=== PATIENT | female | born 1955 | race Caucasian/White ===

== ENCOUNTER 2018-08-09 07:18 | Inpatient (IN) | payer OTHER ==
[2018-08-09] MEDS ORDERED: ceFAZolin 2 GM/DEXTROSE 100 ML IV ONE (07:28)
[2018-08-09] MEDS ORDERED: ACETAMINOPHEN 500 MG TAB PO ONE (07:28)
[2018-08-09] MEDS ORDERED: GABAPENTIN 300 MG CAP PO ONE (07:28)
[2018-08-09] MEDS ORDERED: LR 1,000 ML IV ONE (08:39)
[2018-08-09] MEDS ORDERED: CHLORHEXIDINE GLUC HIBICLENS 118 ML BTL TP ONE (08:59)
[2018-08-09] MEDS ORDERED: SURGIFLO MATRIX KIT WITH THROMBIN 8 ML TP ONE (08:59)
[2018-08-09] MEDS ORDERED: THROMBIN (BOVINE) 20,000 UNIT VIAL TP ONE (08:59)
[2018-08-09] MEDS ORDERED: BACITRACIN 50,000 UNITS/10 ML SYR IRR ONE (09:00)
[2018-08-09] MEDS ORDERED: MIDAZOLAM 2 MG/2 ML VIAL IVP ONE (09:18)
--- NOTE | 2018-08-09 09:21 | PDANEPAE ---
ANE Past Medical History - Cardiovascular History Hx Hypertension: No Hx Arrhythmias: No Hx Chest Pain: No Hx Coronary Artery / Peripheral Vascular Disease: No Hx CHF / Valvular Disease: No Hx Palpitations: No - Pulmonary History Hx COPD: No Hx Asthma/Reactive Airway Disease: No Hx Recent Upper Respiratory Infection: No Hx Oxygen in Use at Home: No Hx Sleep Apnea: No Sleep Apnea Screening Result - Last Documented: Negative - Neurologic History Hx Cerebrovascular Accident: No Hx Seizures: No Hx Dementia: No - Endocrine History Hx Diabetes: No Obesity: mild - Renal History Hx Renal Disorders: No - Liver History Hx Hepatic Disorders: No Hepatic History Comment: KIDNEY STONE IN PAST. UTI RECENTLY - TXD W/ABX - Neurological & Psychiatric Hx Hx Neurological and Psychiatric Disorders: No - Cancer History Hx Cancer: No - Congenital Disorder History Hx Congenital Disorders: No - GI History GERD: mild Hx Gastrointestinal Disorders: Yes Gastrointestinal History Comment: C DIFF RECENTLY. HIATAL HERNIA - Other Health History Other Health History: EPI-RETINAL MEMBRANES. NARROW ANGLE GLAUCOMA - Chronic Pain History Chronic Pain: Yes (WEAKNESS ARMS & LOW BACK PAIN) - Surgical History Prior Surgeries: TONSILLECTOMY. L KNEE ACL. BREAST REDUCTION. EYELID LIFT ANE Review of Systems Review of Systems: - Exercise capacity METS (RN): 4 METS ANE Patient History - Allergies Allergies/Adverse Reactions: droperidol [From Inapsine] Allergy (Severe, Verified 08/09/18 07:59) Other-Enter Comments - Home Medications Home medications: home medication list seen and reviewed Home Medications: Citalopram 06/10/18 [Last Taken 08/09/18 05:00] traZODone 06/10/18 [Last Taken 08/08/18] Herbals/Supplements -Info Only 08/08/18 [Last Taken 08/04/18] Tramadol HCl 08/08/18 [Last Taken 08/09/18 05:00] Tylenol 08/08/18 [Last Taken 08/09/18 04:00] Zolpidem Tartrate 08/08/18 [Last Taken 08/08/18] - NPO status NPO Status: no food or drink >8 hours NPO Since - Liquids (Date): 08/09/18 NPO Since - Liquids (Time): 05:00 NPO Since - Solids (Date): 08/08/18 NPO Since - Solids (Time): 18:00 - Anes Hx Anes Hx: no prior problems - Smoking Hx Smoking Status: Never smoked - Family Anes Hx Family Hx Anesthesia Complications: NEG ANE Labs/Vital Signs - Vital Signs Blood Pressure: 156/87 Heart Rate: 58 Respiratory Rate: 16 O2 Sat (%): 92 Height: 152.4 cm Weight: 76.204 kg ANE Physical Exam - Airway Neck exam: FROM Mallampati Score: Class 2 Mouth exam: normal dental/mouth exam - Pulmonary Pulmonary: no respiratory distress, no rales or rhonchi, clear to auscultation - Cardiovascular Cardiovascular: regular rate and rhythym, no murmur, rub, or gallop - ASA Status ASA Status: II ANE Anesthesia Plan Anesthesia Plan: general endotracheal anesthesia
[2018-08-09] MEDS ORDERED: PROPOFOL 200 MG/20 ML VIAL ONE (09:34)
[2018-08-09] MEDS ORDERED: DEXAMETHASONE 4 MG/ML VIAL ONE ×2 (09:37)
[2018-08-09] MEDS ORDERED: ONDANSETRON 4 MG/2 ML VIAL ONE (09:37)
[2018-08-09] MEDS ORDERED: SUCCINYLCHOLINE CHLORIDE 200 MG/10 ML SYR IVP ONE (09:37)
--- NOTE | 2018-08-09 09:51 | PDHPUP ---
History & Physical Update H&P update statement: This history and physical update is based on an assessment of the patient which was completed after admission or registration (within 24 hours), but prior to the surgery/procedure. H&P update: H&P reviewed & patient examined, no change in patient's condition since H&P completed (Consents signed and site marked. All questions answered.)
[2018-08-09] MEDS ORDERED: DEXMEDETOMIDINE HCL 200 MCG in NS 50 ML IV SCH (10:00)
[2018-08-09] MEDS ORDERED: PHENYLEPHRINE HCL 100 MCG/ML SYR ONE (10:33)
[2018-08-09] MEDS ORDERED: LIDOCAINE 2% 2 ML INJ ONE ×2 (10:38)
[2018-08-09] MEDS ORDERED: GLYCOPYRROLATE 0.2 MG/1 ML VIAL ONE ×2 (10:43→12:12)
[2018-08-09] MEDS ORDERED: fentaNYL 100 MCG/2 ML INJ IVP PRN (12:35)
[2018-08-09] MEDS ORDERED: oxyCODONE IR 5 MG TAB PO PRN ×2 (12:35→13:31)
[2018-08-09] MEDS ORDERED: LR 500 ML IV PRN (12:35)
[2018-08-09] MEDS ORDERED: DIAZEPAM 5 MG/ML 1 ML SYR IVP PRN ×2 (12:35→13:35)
[2018-08-09] MEDS ORDERED: ONDANSETRON 4 MG/2 ML VIAL IVP PRN ×2 (12:35→13:31)
[2018-08-09] MEDS ORDERED: ACETAMINOPHEN 500 MG TAB PO PRN (12:35)
[2018-08-09] MEDS ORDERED: NALOXONE HCL 0.4 MG/ML INJ IVP PRN (12:35)
[2018-08-09] MEDS ORDERED: PROMETHAZINE HCL 25 MG/ML INJ IVP PRN (12:35)
[2018-08-09] MEDS ORDERED: HYDROCODONE/APAP 5/325 TAB PO PRN (12:35)
--- NOTE | 2018-08-09 13:25 | POSTANESTH ---
Post Anesthetic Evaluation Cardiovascular Status: Normal, Stable, Similar to Pre-Op Cond Respiratory Status: Normal, Stable, Similar to Pre-op Cond. Level of Consciousness/Mental Status: Can Participate in Eval, Moderately Sleepy Pain Control: Adequate, Prn Tx Ordered Nausea/Vomiting Control: Adequate, Prn Tx Ordered Complications Possibly Related to Anesthesia: None Noted
[2018-08-09] MEDS ORDERED: BISACODYL 10 MG SUPP PR PRN (13:31)
[2018-08-09] MEDS ORDERED: LACTULOSE 20 GM/30 ML UDCUP PO PRN (13:31)
[2018-08-09] MEDS ORDERED: ONDANSETRON DISINTEGRATING 4 MG TAB PO PRN (13:31)
[2018-08-09] MEDS ORDERED: MAGNESIUM HYDROXIDE 30 ML UDCUP PO PRN (13:31)
[2018-08-09] MEDS ORDERED: diphenhydrAMINE 25 MG CAP PO PRN (13:31)
[2018-08-09] MEDS ORDERED: POLYETHYLENE GLYCOL 3350 17 GM PKT PO PRN (13:31)
--- NOTE | 2018-08-09 13:39 | POSTOPPROG ---
Post Op Note Date of Operation: 08/09/18 Surgeon: Jimenez Anderson Certified Bench Jeweler Technician: LORETTA Perez Anesthesia: GET(General Endotracheal) Pre-op Diagnosis: cervical stenosis, weakness Post-op Diagnosis: cervical stenosis, weakness Indication: cervical stenosis, weakness Procedure: ACDF C4-7 Inf/Abcess present in the surg proc area at time of surgery?: No EBL: Minimal Drains: Hardy DELATORRE Addendum - Addendum .: S: resting comfortablly O: NAD A&Ox3 MAEX4, equal in BUE and BLE. Incision c/d/i A/P 63F s/p ACDF C4-7 -Optimize pain management -PT/OT -Post op xrays pending -NATY drain x1 -Please notify NS with any change in neuro/motor exam
[2018-08-09] MEDS ORDERED: NS 1,000 ML IV SCH (13:45)
[2018-08-09] MEDS ORDERED: ACETAMINOPHEN 500 MG TAB ONE (13:56)
[2018-08-09] MEDS: ACETAMINOPHEN 500 MG TAB PO SCH ×2 (13:59→21:36)
--- NOTE | 2018-08-09 15:34 | GOP ---
DATE OF OPERATION: 08/09/2018 SURGEON: Jimenez Anderson MD STEVEDORING SUPERINTENDENT: LORETTA Bell ANESTHESIA: General. PREOPERATIVE DIAGNOSIS: 1. C4 through C7 cervical stenosis with myelopathy. 2. Cervical spondylosis. 3. Cervicalgia. 4. Treatment refractory to nonoperative intervention. POSTOPERATIVE DIAGNOSIS: 1. C4 through C7 cervical stenosis with myelopathy. 2. Cervical spondylosis. 3. Cervicalgia. 4. Treatment refractory to nonoperative intervention. PROCEDURE PERFORMED: 1. Anterior arthrodesis with approach to C4, C5, C6, and C7. 2. C4-C5 diskectomy with bilateral foraminotomies and osteophytectomies and interbody fusion using a 6 mm titanium coated PEEK cage filled with morselized autograft and allograft. 3. C5-C6 diskectomy with bilateral foraminotomies and osteophytectomies and interbody fusion using a 6 mm titanium coated PEEK cage filled with morselized autograft and allograft. 4. C6-C7 diskectomy with bilateral foraminotomies and osteophytectomies and interbody fusion using a 6 mm titanium coated PEEK cage filled with morselized autograft and allograft. 5. Anterior cervical fusion C4,,C5, C6, and C7 with a 52.5 mm [employer]onic [place] translational plate. 6. Use of intraoperative fluoroscopy, less than 1 hour physician time. 7. Use of neuromonitoring. 8. Use of the operating microscope. FINDINGS: per imaging SPECIMENS: None. ESTIMATED BLOOD LOSS: 30 mL. INDICATIONS: The patient unfortunately presented to my office with more difficulty with her gait and balance and lower extremity radiculopathy and back pain. Imaging also demonstrated severe spinal stenosis in the cervical spine, C4 through C7 with evidence of myelopathy and weakness in the upper extremities. After discussion of the risks, benefits, and treatment alternatives and after failing nonoperative, we decided to proceed forth with surgery as described above. When she is cleared from her neck, then we will proceed forth through lumbar surgery in the future. DESCRIPTION OF PROCEDURE: The patient was brought to the operating theater and underwent general endotracheal anesthesia without complication. She had Venodynes, MENG hose, and the appropriate lines placed by Anesthesia. She was maintained supine on the operating table and her head in slight extension. All bony processes inspected and padded. Using lateral fluoroscopy and a spinal needle, we picked our entry point to the C4 through C7 levels. This was marked as a transverse incision on the right side of her neck. This area was prepped and draped in usual sterile surgical fashion. A time-out was completed per protocol and the patient received antibiotics within 1 hour of incision. The incision was taken down initially with the scalpel blade and then using monopolar taken down through subcutaneous tissues to the level of the platysma. The platysma was over-mined in the cranial and caudal directions. A Weitlaner was placed to maintain our exposure. We opened the fibers of the platysma cranially and caudally. Using both blunt and sharp dissection, we traveled in a plane medial to the carotid sheath and lateral to the esophagus and trachea to reach the prevertebral fascia. We placed a bayonetted needle into the disk space of C4-C5 and confirmed our level using lateral fluoroscopy. We elevated the longus coli muscle from the anterior vertebral bodies of C4, C5, C6, and C7. There were large anterior osteophytes on the vertebral bodies which we took down the [place] rongeur. We then brought the microscope into the field to assist with microscopic dissection and maintain illumination and magnification. We moved up to the C4- C5 and we placed a Wilson pin into the C4 and C5 levels and placed C4-C5 into mild distraction. We completed a C4-C5 diskectomy with bilateral foraminotomies and osteophytectomies. We prepared the cartilaginous endplates and measured the interbody space. We placed a 6 mm titanium coated PEEK cage fill with morselized autograft and allograft into the C4-C5 disk space. We removed the Wilson pin from C4, and placed it into C6 and placed C5-C6 into mild distraction. We completed a C5-C6 diskectomy with bilateral foraminotomies and osteophytectomies. We prepared the cartilaginous endplates and measured the interbody space. We placed a 6 mm titanium coated PEEK cage filled with morselized autograft and allograft into the C5-C6 disk space. We removed the Wilson pin from C5, and placed it into C7, and placed C6-C7 into mild distraction. We completed a C6-C7 diskectomy with bilateral foraminotomies and osteophytectomies and prepared the cartilaginous endplates. We measured the interbody space and placed a 6 mm titanium coated PEEK cage filled with morselized autograft and allograft into the C6-7 disk space. We removed the Wilson pin and drilled down the anterior osteophytes. We secured a 52.5 mm [employer]onic [place] translational plate onto the vertebral bodies of C4, C5, C6, and C7. AP and lateral x-rays demonstrated good placement of the hardware. The wound was irrigated copiously with bacitracin irrigation. We left a drain in subfascial space. The wound was closed in multiple layers using Vicryl sutures deep layers and Dermabond for skin. The patient's wound was dressed sterilely. She was awakened, extubated, and taken to the recovery room in stable condition. There were no complications and no noted changes on neuromonitoring throughout the procedure. COMPLICATIONS: None. /[id number]/MODL MTDD
[2018-08-09] MEDS: ceFAZolin 2 GM/DEXTROSE 100 ML IV SCH ×2 (18:01→18:05)
--- NOTE | 2018-08-09 18:04 | PDMN ---
Medical Necessity Medical necessity: [facility] IP only surgery; cpt 32779 Cervical Fusion, 69842 Anterior Instrumentation 4-7 segments (C4/7 ACDF)
[2018-08-09] MEDS: DEXAMETHASONE 4 MG/ML VIAL IVP SCH ×2 (18:06→23:05)
[2018-08-09] MEDS: SENNOSIDES/DOCUSATE SODIUM TAB PO SCH (21:36)
[2018-08-09] MEDS: FAMOTIDINE 20 MG TAB PO SCH (21:36)
[2018-08-09] MEDS ORDERED: ZOLPIDEM TARTRATE 5 MG TAB PO PRN (22:13)
[2018-08-09] MEDS ORDERED: traZODone 50 MG TAB PO SCH (22:15)
[2018-08-10] MEDS ORDERED: ceFAZolin 2 GM/DEXTROSE 100 ML IV SCH (02:00)
[2018-08-10] MEDS: ACETAMINOPHEN 500 MG TAB PO SCH ×2 (05:11→14:01)
[2018-08-10 05:20] LABS: PLATELET COUNT 230 10^3/uL (150-400)
--- NOTE | 2018-08-10 07:29 | NEUSURGPN ---
Date of Surgery: 08/09/18 Post Op Day: 1 Assessment/Plan: Assessment: 63 yo female that is s/p ACDF C4-7 POD#1 Plan: -s/p ACDF C4-C7-pt feeling well today, eating and drinking fine -aspen collar in place -NATY to be removed today -Optimize pain management-doing well with current plan -PT/OT/ST-CPM -Post op xrays pending -NATY drain x [address] -Please notify NS with any change in neuro/motor exam Subjective: Awake and alert. NAD. Eating/drinking and voiding. No f/c/n/v/d. Objective: AAO x 3, PERRLA/EOMI no droop CN 2-12 grossly intact +lt touch 5/5 BUE/BLE = CDI neck soft and supple Neuro Check Frequency: per routine Urinary Catheter in Place: No - Physician Discussed Patient with DrChristiaon: Monica Neurosurgery Physical Exam - Vitals, I&O, Labs I and O 08/09/18 08/10/18 08/11/18 05:59 05:59 05:59 Intake Total 3551 Output Total 1280 500 Balance 2271 -500 Weight 76.204 kg 76.204 kg Intake: Oral (ml) 2050 IV Intake (ml) 800 IV Infused (ml) 701 Ns 1,000 ml @ 75 mls/hr 485 IV CONT REKHA Rx#: [id number] ceFAZolin 2 GM/DEXTROSE 216 100 ml @ 200 mls/hr IV Q8H REKHA Rx#:[id number] Output: Urine (ml) 1200 500 Toilet 1200 500 Estimated Blood Loss (ml) 50 NATY Drain Output (ml) 30 Hardy Esteves 30 Other: Intake Quantity Yes Sufficient Number of Voids Toilet 2 Vital Signs Temp Pulse Resp BP Pulse Ox 36.6 C 57 L 18 141/75 H 92 08/10/18 04:23 08/10/18 04:23 08/10/18 04:23 08/10/18 04:23 08/10/18 04:23 Laboratory Results 08/10/18 04:35 08/10/18 04:35 ICD10 Worksheet Patient Problems: Problems Problem Status Onset Urinary tract infection Acute
[2018-08-10] MEDS: FAMOTIDINE 20 MG TAB PO SCH (08:28)
[2018-08-10] MEDS: SENNOSIDES/DOCUSATE SODIUM TAB PO SCH (08:43)
[2018-08-10] MEDS ORDERED: ZOLPIDEM TARTRATE 5 MG TAB PO PRN (09:57)
[2018-08-10] MEDS ORDERED: HYDROCORTISONE 2.5% 30 GM CRTUBE TP SCH (10:15)
[2018-08-10 11:24] VITALS: BP 124/89
--- NOTE | 2018-08-10 12:22 | ASMTLACE ---
G[facility] Length of stay for Answers: 2 days current admission Acuity / Level of Answers: Yes Care: Did the patient have an inpatient admission? Comorbidities - select Answers: Diabetes (uncontrolled or all that apply controlled) Opioid dependence / Chronic pain Other Notes: Hx of diverticulitis; Spinal stenosis # of Emergency department Answers: 1-2 visits in the last 6 months Social determinants Answers: Mental health diagnosis (anxiety, depression, pers onality disorders, etc.) Score: 15 Date Signed: 08/10/2018 12:20 PM Electronically Signed By:DONNA Garcia
--- NOTE | 2018-08-10 12:23 | ASMTCMCOM ---
CM Note CM Note Notes: Pt had planned surgery for cervical stenosis. OT/PT/SHIP WASHER rec home. ALEJANDRINA Dent has no concerns. Pt medically stable for d/c, no CM d/c needs identified. Date Signed: 08/10/2018 12:21 PM Electronically Signed By:DONNA Garcia
[2018-08-10] MEDS ORDERED: traMADol 50 MG TAB PO SCH (21:00)
[2018-08-10] MEDS ORDERED: ACETAMINOPHEN 500 MG TAB PO SCH (21:00)
[2018-08-10] MEDS ORDERED: traZODone 50 MG TAB PO SCH (21:00)
[2018-08-11] MEDS ORDERED: CITALOPRAM 20 MG TAB PO SCH (09:00)
[2018-08-12] MEDS ORDERED: ENOXAPARIN 40 MG/0.4 ML SYR SC SCH (09:00)
== END 2018-08-10 17:01 | disposition home or self-care (01) | DRG 472 ==
LOC: F3N 07:18
PROVIDERS: ADMIT Neurological Surgery; ATTEND Neurological Surgery
PROC: 4A1004G Monitoring of Central Nervous Electrical Activity, Intraoperative, Open Approach (ICD-10-PCS; principal; 2018-08-09 09:30)
PROC: 8E09XBZ Computer Assisted Procedure of Head and Neck Region (ICD-10-PCS; principal; 2018-08-09 09:30)
PROC: 0RG20A0 Fusion of 2 or more Cervical Vertebral Joints with Interbody Fusion Device, Anterior Approach, Anterior Column, Open Approach (ICD-10-PCS; principal; 2018-08-09 09:30)
DX: M50.021 Cervical disc disorder at C4-C5 level with myelopathy (principal); M47.12 Other spondylosis with myelopathy, cervical region; M50.022 Cervical disc disorder at C5-C6 level with myelopathy; M50.023 Cervical disc disorder at C6-C7 level with myelopathy; E74.39 Other disorders of intestinal carbohydrate absorption; E78.00 Pure hypercholesterolemia, unspecified; R03.0 Elevated blood-pressure reading, without diagnosis of hypertension; M43.16 Spondylolisthesis, lumbar region
CPT/HCPCS: 92526-GN; 92610-GN; 97161-GP; 97166-GO; C1713; G8978-GP-CI; G8979-GP-CI; G8980-GP-CI; G8987-GO-CI; G8988-GO-CI; G8989-GO-CI; G8996-GN-CH; G8997-GN-CH; J0330; J0690; J1100; J2250; J2270; J2370; J2405; J2704; J3360

== ENCOUNTER 2018-10-30 08:32 | Emergency (ER) | payer OTHER ==
[2018-10-30] MEDS ORDERED: PROMETHAZINE HCL 25 MG/ML INJ IVP ONE (09:00)
[2018-10-30] MEDS ORDERED: METOCLOPRAMIDE 10 MG/2 ML VIAL IVP ONE (09:00)
[2018-10-30] MEDS ORDERED: NS 1,000 ML IV ONE ×2 (09:00)
--- NOTE | 2018-10-30 09:00 | EDPHY ---
H & P Stated Complaint: Spine surgery at [place] [address] days ago;n/v,can't take pain meds Time Seen by Provider: 10/30/18 08:57 HPI/ROS: HPI: This is a 63-year-old female who presents with Chief Complaint: Spine surgery at [place] [address] days ago;n/v,can't take pain meds Location: GI Quality: Nausea, vomiting Duration: Since yesterday afternoon Signs and Symptoms: no fever, + nausea, + vomiting, no hematemesis, no blood in stool, no abdominal bloating, + diarrhea, no back pain, no urinary symptoms, no vaginal bleeding/discharge, no indigestion, no chest pain, no shortness of breath Timing: Acute, intermittent episodes Severity: Moderate Context: Patient reports that 3 days ago she you was at [facility] for thoracic and lumbar decompression, laminectomy and fusion performed by Dr. Anderson. Patient reports that she was discharged yesterday and upon arrival home started to feel nauseous and have multiple episodes of vomiting and loose stool. She reports since yesterday evening she is only feeling nauseous and dry heaves as there is nothing"left and my stomach anymore." Patient reports while she was in the hospital on day of discharge did feel nauseous but did not vomit. She has had approximately 3-5 loose stools. No recent antibiotic use. No recent foreign travel. She denies any actual abdominal pain but does complain of abdominal cramping. She has been unable to "keep any pain medications down "since yesterday afternoon. She was discharged home on oxycodone. She denies any back pain, incontinence, paresthesias, decreased range of motion. She is currently wearing her back brace per Neurosurgery recommendation. Modifying Factors: None Comment: ROS: A comprehensive 10 system review of systems is otherwise negative aside from elements mentioned in the history of present illness. MEDICAL/SURGICAL/SOCIAL HISTORY: Medical/Surgical history: sciatica/spinal stenosis, Uti, breast reduction, kidney stone, borderline diabetes, high cholesterol, ACL repair lt, tonsillectomy, eyelid surgery, anxiety, diverticulitis, glaucoma with laser surgery, hiatal hernia, insomnia, arthritis, RA, spinal stenosis Social history: , retired. Family history noncontributory. CONSTITUTIONAL: Uncomfortable but nontoxic-appearing elderly white female, holding emesis basin, awake and alert, no obvious distress HEENT: Atraumatic and normocephalic, PERRL, EOMI. Nares patent; no rhinorrhea; no nasal mucosal edema. Tympanic membranes clear. Oropharynx clear, no exudate and dry oral mucosa with dry cracked lips. Airway patent. No lymphadenopathy. No meningismus. Cardiovascular: Normal S1/S2, regular rate, regular rhythm, without murmur rub or gallop. PULMONARY/CHEST: Symmetrical and nontender. Clear to auscultation bilaterally. Good air movement. No accessory muscle usage. ABDOMEN: Soft, obesely rounded, nondistended, nontender, no rebound, no guarding, no peritoneal signs, no masses or organomegaly. No CVAT. EXTREMITIES: 2/2 pulses, strength 5/5, no deformities, no clubbing, no cyanosis or edema. NEUROLOGICAL: no focal neuro deficits. GCS 15. SKIN: Warm and dry, no erythema. no rash. Good capillary refill. Source: Patient Exam Limitations: No limitations - Personal History Current Tetanus Diphtheria and Acellular Pertussis (TDAP): Yes - Medical/Surgical History Hx Asthma: No Hx Chronic Respiratory Disease: No Hx Diabetes: No Hx Cardiac Disease: No Hx Renal Disease: No Hx Cirrhosis: No Hx Alcoholism: No Hx HIV/AIDS: No Hx Splenectomy or Spleen Trauma: No Other PMH: sciatica/spinal stenosis, Uti, breast reduction, kidney stone, borderline diabetes, high cholesterol, ACL repair lt, tonsillectomy, eyelid surgery, anxiety, diverticulitis, glaucoma with laser surgery, hiatal hernia, insomnia, arthritis, RA, spinal stenosis - Social History Smoking Status: Never smoked Constitutional: Initial Vital Signs Temperature (C) 36.7 C 10/30/18 08:32 Heart Rate 80 10/30/18 08:32 Respiratory Rate 16 10/30/18 08:32 Blood Pressure 158/85 H 10/30/18 08:32 O2 Sat (%) 92 10/30/18 08:32 O2 Delivery Mode Room Air O2 (L/minute) 2 Allergies/Adverse Reactions: droperidol [From Inapsine] Allergy (Severe, Verified 10/30/18 08:32) Other-Enter Comments Home Medications: Medication Instructions Recorded Acetaminophen [Tylenol ES 500 mg 1,000 mg PO BID 08/09/18 (*)] Citalopram [CeleXA 20 MG] 20 mg PO DAILY 08/09/18 Herbals/Supplements -Info Only 1 ea PO DAILY 08/09/18 Hydrocortisone [Proctozone-Hc] 1 gm TP HS 08/09/18 Zolpidem Tartrate [Ambien 5MG (*)] 5 mg PO HS PRN 08/09/18 Sennosides/Docusate Sodium 1 - 2 tab PO BID #20 tab 08/10/18 [Senokot-S] Methocarbamol [Robaxin 750 mg (*)] 750 mg PO 10/30/18 oxyCODONE HCL [Oxycodone HCl] 5 mg PO 10/30/18 Medical Decision Making ED Course/Re-evaluation: Vital signs reviewed and stable upon arrival. No systemic signs. IV access and laboratory studies obtain Abdomen is soft and nontender doubt surgical process or need for imaging Patient will be given 2 L normal saline, IV promethazine 12.5 mg, IV Reglan 10 mg, IV Benadryl 25 mg, IV Dilaudid 0.5 mg 0957: Labs reviewed. WBC 10 K with left shift, H&H 10.9/31.8. No signs of platelet dysfunction/RA/elevated LFTs/electrolyte imbalance/pancreatitis. 1030: Clear surgery PA stop by and talk to patient. Prescription for Zofran called into [facility] 1050: Patient drinking liquids and eating Vivek crackers. Abdomen remains soft and nontender. Patient will be discharged home with Neurosurgery follow-up. This patient was seen under the supervision of my secondary supervising physician. I evaluated care for this patient independently. Discussed this patient with Dr. Kam who did not see the patient. Differential Diagnosis: Abdominal pain including but not limited to appendicitis, cholecystitis, gastritis and urinary tract infection. - Data Points Laboratory Results: Laboratory Results 10/30/18 09:11 10/30/18 09:11 10/30/18 10/30/18 09:11 09:11 WBC 10.23 10^3/uL H 10^3/uL (3.80-9.50) RBC 3.42 10^6/uL L 10^6/uL (4.18-5.33) Hgb 10.9 g/dL L g/dL (12.6-16.3) Hct 31.8 % L % (38.0-47.0) MCV 93.0 fL fL (81.5-99.8) MCH 31.9 pg pg (27.9-34.1) MCHC 34.3 g/dL g/dL (32.4-36.7) RDW 12.1 % % (11.5-15.2) Plt Count 217 10^3/uL 10^3/uL (150-400) MPV 9.4 fL fL (8.7-11.7) Neut % (Auto) 80.4 % H % (39.3-74.2) Lymph % (Auto) 12.0 % L % (15.0-45.0) [place] % (Auto) 6.7 % % (4.5-13.0) Eos % (Auto) 0.1 % L % (0.6-7.6) Baso % (Auto) 0.2 % L % (0.3-1.7) Nucleat RBC Rel Count 0.0 % % (0.0-0.2) Absolute Neuts (auto) 8.22 10^3/uL H 10^3/uL (1.70-6.50) Absolute Lymphs (auto) 1.23 10^3/uL 10^3/uL (1.00-3.00) Absolute Monos (auto) 0.69 10^3/uL 10^3/uL (0.30-0.80) Absolute Eos (auto) 0.01 10^3/uL L 10^3/uL (0.03-0.40) Absolute Basos (auto) 0.02 10^3/uL 10^3/uL (0.02-0.10) Absolute Nucleated RBC 0.00 10^3/uL 10^3/uL (0-0.01) Immature Gran % 0.6 % % (0.0-1.1) Immature Gran # 0.06 10^3/uL 10^3/uL (0.00-0.10) Sodium 137 mEq/L mEq/L (135-145) Potassium 4.1 mEq/L mEq/L (3.5-5.2) Chloride 104 mEq/L mEq/L (97-110) Carbon Dioxide 27 mEq/l mEq/l (22-31) Anion Gap 6 mEq/L mEq/L (6-14) BUN 12 mg/dL mg/dL (7-23) Creatinine 0.6 mg/dL mg/dL (0.6-1.0) Estimated GFR > 60 Glucose 123 mg/dL H mg/dL (70-100) Calcium 9.0 mg/dL mg/dL (8.5-10.4) Total Bilirubin 0.9 mg/dL mg/dL (0.1-1.4) Conjugated Bilirubin 0.3 mg/dL mg/dL (0.0-0.5) Unconjugated Bilirubin 0.6 mg/dL mg/dL (0.0-1.1) AST 19 IU/L IU/L (14-46) ALT 25 IU/L IU/L (9-52) Alkaline Phosphatase 49 IU/L IU/L (38-126) Total Protein 6.0 g/dL L g/dL (6.3-8.2) Albumin 3.6 g/dL g/dL (3.5-5.0) Lipase 28 IU/L IU/L (23-300) Medications Given: Discontinued Medications Diphenhydramine HCl (Benadryl Injection) 25 mg IVP EDNOW ONE Stop: 10/30/18 09:02 Last Admin: 10/30/18 09:18 Dose: 25 mg Hydromorphone HCl (Dilaudid) 0.5 mg IVP EDNOW ONE Stop: 10/30/18 09:09 Last Admin: 10/30/18 09:18 Dose: 0.5 mg Sodium Chloride (Ns) 1,000 mls @ 0 mls/hr IV EDNOW ONE; Wide Open PRN Reason: Protocol Stop: 10/30/18 09:01 Last Admin: 10/30/18 09:18 Dose: 1,000 mls Sodium Chloride (Ns) 1,000 mls @ 0 mls/hr IV EDNOW ONE; Wide Open PRN Reason: Protocol Stop: 10/30/18 09:01 Last Admin: 10/30/18 10:04 Dose: 1,000 mls Metoclopramide HCl (Reglan Injection) 10 mg IVP EDNOW ONE Stop: 10/30/18 09:01 Last Admin: 10/30/18 09:17 Dose: 10 mg Promethazine HCl (Phenergan) 12.5 mg IVP EDNOW ONE Stop: 12/30/18 09:01 Last Admin: 10/30/18 09:17 Dose: 12.5 mg Departure - Departure Disposition: Home, Routine, Self-Care Clinical Impression: Nausea and vomiting in adult, History of back surgery Condition: Good Instructions: Acute Nausea and Vomiting (ED) Additional Instructions: Consume a minimum of 8-10 glasses of water or electrolyte fluid replacement drinks that include Gatorade, Powerade, Pedialyte. Eat a bland diet for the next 48 hours and then slowly advance as tolerated. Take Zofran 1 tab every 4 hours as needed for nausea, vomiting. Return to the Emergency Room if symptoms do not resolve in the next 48-72 hours , you spike a fever > 102 F, or experience intractable abdominal pain/nausea/ vomiting. Follow-up with Neurosurgery as previously planned. Referrals: Brandy Asif MD [Primary Care Provider] - As per Instructions Jimenez Anderson MD [Medical Doctor] - As per Instructions
[2018-10-30] MEDS ORDERED: HYDROmorphONE/DILAUDID 2 MG/ML INJ IVP ONE (09:08)
[2018-10-30 09:30] LABS: PLATELET COUNT 217 10^3/uL (150-400)
[2018-10-30 11:59] VITALS: BP 154/86
== END 2018-10-30 11:59 | disposition home or self-care (01) ==
DX: R11.2 Nausea with vomiting, unspecified (principal); E86.9 Volume depletion, unspecified; Z98.890 Other specified postprocedural states
CPT/HCPCS: 96361; 96374; 96375; 99284; J1170; J1200; J2550; J2765